=== PATIENT | male | born 1990 | race Caucasian/White ===

== ENCOUNTER 2017-12-15 17:00 | Emergency (ER) | END 2017-12-15 19:24 | disposition home or self-care (01) ==

== ENCOUNTER 2018-10-26 18:27 | Emergency (ER) | payer SELFPAY ==
[~2018-10-26 18:27] MED LIST: IBUP-1542 PO; IBUP-1561 PO; ONDA4TAB8 PO; TAMS-14 PO; TRAM50TA2 PO
== END 2018-10-26 18:35 | disposition left against medical advice (07) ==
LOC: E/R 18:27
DX: Z53.21 Procedure and treatment not carried out due to patient leaving prior to being seen by health care provider (principal)